=== PATIENT | female | born 1965 | race Caucasian/White ===

== ENCOUNTER 2017-09-15 16:07 | Emergency (ER) | payer BC ==
[~2017-09-15] VITALS: Ht 172.7 cm; Wt 51.8 kg
[~2017-09-15 16:07] MED LIST: ALBU18HF INH; BACL-19 PO; BUDE10.2 INH; BUTA1CAP58 PO; CALC-451 PO; CHOL4PAC2 PO; DULO30CA2 PO; HYDR-3307 PO; LEVO175T2 PO; MORP30TA81 PO; MULT-658 PO; ONDA4TAB10 PO; PREG150C PO; TIZA2TAB PO; TOPI100T24 PO; dicyclomine PO; vitamin c PO; vitamin d PO
[2017-09-15] MEDS ORDERED: SODIUM CHLORIDE FLUSH 10ML SYR IVF ONE (16:30)
[2017-09-15] MEDS ORDERED: ONDANSETRON 2MG/ML, 2ML IVPush ONE (16:30)
[2017-09-15] MEDS ORDERED: SODIUM CHLORIDE 0.9% 1,000ML IVBOLUS ONE (16:30)
[2017-09-15 16:48] LABS: HEMATOCRIT 42.1 % (34.6-47.8); HEMOGLOBIN 14.2 g/dL (11.7-16.4); WHITE BLOOD COUNT 6.8 x10^3/uL (3.4-10)
[2017-09-15 16:59] LABS: ASPARTATE AMINO TRANSFERASE 898 U/L (15-37); BLOOD UREA NITROGEN 14 mg/dL (7-18)
[2017-09-15] MEDS ORDERED: HYDROmorphone 1 MG/ML, 1ML IVPush PRN (17:00)
[2017-09-15] MEDS ORDERED: ONDANSETRON 2MG/ML, 2ML ONE (17:42)
[2017-09-15] MEDS ORDERED: HYDROmorphone 1 MG/ML, 1ML ONE (17:42)
[2017-09-15] MEDS ORDERED: OMNIPAQUE 350 MG/ML, 100ML BOTTLE ONE (18:12)
[2017-09-15 18:48] VITALS: BP 108/77
== END 2017-09-15 19:23 | disposition home or self-care (01) ==
LOC: ED 19:17
DX: K59.00 Constipation, unspecified (principal)
CPT/HCPCS: 36415; 74020; 74177; 80053; 81003; 83690; 85025; 96361; 96374; 96375; 99285; J1170; J2405; J7030; Q9967

== ENCOUNTER → 2018-01-22 | Outpatient (CLI) | payer MEDICARE, OTHER ==
[~2018-01-22] MED LIST changes: +FENTANYL PF 100 MCG/2ML ONE; +GADOBUTROL 7.5 MMOL/7.5 ML PFS ONE; +MIDAZOLAM 1 MG/ML, 2ML ONE
== END | disposition home or self-care (01) ==
LOC: RAD 12:18
PROVIDERS: ATTEND Physician Assistant
DX: M48.061 Spinal stenosis, lumbar region without neurogenic claudication (principal); M51.26 Other intervertebral disc displacement, lumbar region; M54.16 Radiculopathy, lumbar region; M96.1 Postlaminectomy syndrome, not elsewhere classified; Z98.890 Other specified postprocedural states
CPT/HCPCS: 72158; 99156; 99157; A9585; J2250; J3010

== ENCOUNTER → 2018-03-04 | Outpatient (CLI) | payer OTHER ==
[~2018-03-04] MED LIST changes: -FENTANYL PF 100 MCG/2ML ONE; -GADOBUTROL 7.5 MMOL/7.5 ML PFS ONE; -MIDAZOLAM 1 MG/ML, 2ML ONE
== END ==
LOC: CFH 09:24
PROVIDERS: ATTEND Nurse Practitioner Family
DX: M51.26 Other intervertebral disc displacement, lumbar region (principal); M43.26 Fusion of spine, lumbar region; M43.16 Spondylolisthesis, lumbar region
CPT/HCPCS: 72120; 72131

== ENCOUNTER → 2018-04-28 | Outpatient (CLI) | payer OTHER ==
[~2018-04-28] MED LIST changes: +COLE1TAB PO; +DICY10CA3 PO; +HYDR-879 PO; +IMATREX NAS; +PRAMIPREXOLE PO; +TIOT18CA INH
[2018-04-28 14:56] LABS: BASOPHILS # (AUTO) 0.04 x10^3/uL (0-0.1); BASOPHILS % (AUTO) 1 % (0-1); EOSINOPHILS # (AUTO) 0.25 x10^3/uL (0-0.4); EOSINOPHILS % (AUTO) 5 % (1-7); LYMPHOCYTES % (AUTO) 34 % (22-44); MD NO; MEAN CORPUSCULAR HEMOGLOBIN 31.7 pg (27.0-34.8); MEAN CORPUSCULAR HGB CONC 33.5 g/dL (32.4-35.8); MEAN CORPUSCULAR VOLUME 94.7 fL (80-100); MEAN PLATELET VOLUME 7.3 fL (7.4-10.4); MONOCYTES % (AUTO) 8 % (2-9); NEUTROPHILS # (AUTO) 2.82 x10^3/uL (1.8-6.8); NEUTROPHILS % (AUTO) 53 % (42-75); PLATELET COUNT 274 x10^3/uL (130-400); RED BLOOD COUNT 4.59 x10^6/uL (3.82-5.3); RED CELL DISTRIBUTION WIDTH 14.2 % (9.6-15.2)
[2018-04-28 14:58] LABS: MICROSCOPIC AUTO
[2018-04-28 15:02] LABS: CULTURE INDICATED? YES
[2018-04-28 15:06] LABS: INTERNATIONAL NORMALIZED RATIO 1.03 (0.93-1.1); PROTHROMBIN TIME 10.7 Seconds (9.6-11.5)
[2018-04-28 15:07] LABS: ANION GAP 4 mmol/L (5-15); CHLORIDE 114 mmol/L (98-107); CREATININE 0.81 mg/dL (0.55-1.02)
== END ==
LOC: STAR 13:34
PROVIDERS: ATTEND Neurological Surgery
DX: Z01.818 Encounter for other preprocedural examination (principal); M51.36 Other intervertebral disc degeneration, lumbar region
CPT/HCPCS: 36415; 71046; 80048; 81001; 85025; 85610; 85730; 87086; 93005

== ENCOUNTER 2018-05-11 10:30 | Inpatient (IN) | payer OTHER ==
[2018-04-28 14:05] VITALS: BP 121/81
[~2018-05-11] VITALS: Ht 172.7 cm; Wt 58.3 kg
[2018-05-26] MEDS ORDERED: EPINEPHRINE 1 MG/ML, 1ML ONE (09:26)
[2018-05-26] MEDS ORDERED: VANCOMYCIN 1,000 MG ONE (09:26)
[2018-05-26] MEDS ORDERED: THROMBIN 5,000 UNIT VIAL TP ONE (09:26)
[2018-05-26] MEDS ORDERED: BUPIVACAINE 0.25% ONE (09:26)
[2018-05-26] MEDS ORDERED: BACITRACIN 50,000 UNIT ONE (09:27)
[2018-05-26] MEDS ORDERED: LACTATED RINGERS 1,000 ML IV SCH (09:32)
[2018-05-26] MEDS ORDERED: GABAPENTIN 300 MG CAPSULE PO ONE (10:00)
[2018-05-26] MEDS ORDERED: ONDANSETRON ODT 8 MG PO ONE (10:00)
[2018-05-26] MEDS ORDERED: OXYcodone IR 5MG TABLET PO ONE (10:00)
[2018-05-26] MEDS ORDERED: ACETAMINOPHEN 500 MG TABLET PO ONE (10:00)
[2018-05-26] MEDS ORDERED: PROMETHAZINE 25 MG/ML, 1ML IV PRN (11:00)
[2018-05-26] MEDS ORDERED: MORPHINE SULFATE 4 MG/ML, 1ML IVPush PRN (11:00)
[2018-05-26] MEDS ORDERED: HALOPERIDOL 5 MG/ML IV PRN (11:00)
[2018-05-26] MEDS ORDERED: LABETALOL 5MG/ML, 20ML IV PRN (11:00)
[2018-05-26] MEDS ORDERED: ONDANSETRON ODT 8 MG PO PRN (11:00)
[2018-05-26] MEDS ORDERED: ALBUTEROL SULFATE 2.5 MG/3 ML NPPB PRN (11:00)
[2018-05-26] MEDS ORDERED: METOPROLOL 1 MG/ML, 5ML IV PRN (11:00)
[2018-05-26] MEDS ORDERED: OXYcodone 5 MG/5 ML ORAL.SOL UDC PO PRN (11:00)
[2018-05-26] MEDS ORDERED: hydrALAzine 20 MG/ML, 1ML IV PRN (11:00)
[2018-05-26] MEDS ORDERED: EPHEDRINE 50 MG/ML, 1ML IVPush PRN (11:00)
[2018-05-26] MEDS ORDERED: HEPARIN 1,000 UNITS/ML, 30ML ONE (11:37)
[2018-05-26] MEDS ORDERED: DEXAMETHASONE 4 MG/ML, 1ML ONE (12:24)
[2018-05-26] MEDS ORDERED: SUCCINYLCHOLINE 20 MG/ML, 10ML ONE (12:24)
[2018-05-26] MEDS ORDERED: MIDAZOLAM 1 MG/ML, 2ML ONE (12:28)
[2018-05-26] MEDS ORDERED: BUPIVACAINE/PF 0.25% INFIL ONE ×2 (13:19→13:20)
[2018-05-26] MEDS ORDERED: EPINEPHRINE 1 MG/ML, 1ML INFIL ONE (13:21)
[2018-05-26] MEDS ORDERED: VANCOMYCIN 1,000 MG IM ONE (13:21)
[2018-05-26] MEDS ORDERED: FENTANYL PF 250 MCG/5ML ONE (14:16)
[2018-05-26] MEDS ORDERED: PROPOFOL 50 ML ONE (14:17)
[2018-05-26] MEDS ORDERED: ROCURONIUM 10MG/ML,5ML ONE (14:48)
[2018-05-26] MEDS ORDERED: PROPOFOL 10 MG/ML, 20ML ONE (14:48)
[2018-05-26] MEDS ORDERED: CEFAZOLIN 1,000 MG ONE (14:48)
[2018-05-26] MEDS ORDERED: ONDANSETRON 2MG/ML, 2ML ONE (15:35)
[2018-05-26] MEDS ORDERED: FENTANYL PF 100 MCG/2ML ONE (15:57)
[2018-05-26] MEDS ORDERED: OXYcodone 5 MG/5 ML ORAL.SOL UDC ONE ×2 (15:57→17:08)
[2018-05-26] MEDS: FENTANYL PF 100 MCG/2ML IV PRN ×3 (15:59→16:10)
[2018-05-26] MEDS ORDERED: MEPERIDINE/PF 100 MG/ML IM PRN (16:00)
[2018-05-26] MEDS ORDERED: DIPHENHYDRAMINE 50 MG/ML, 1ML IVPush PRN (16:00)
[2018-05-26] MEDS: DICYCLOMINE 10 MG CAPSULE PO SCH ×2 (16:00→20:23)
[2018-05-26] MEDS ORDERED: PHARMACY MAY ADJ FOR RENAL FX MC PRN (16:00)
[2018-05-26] MEDS ORDERED: BISACODYL 10 MG SUPP PR PRN (16:00)
[2018-05-26] MEDS ORDERED: IMATREX NAS PRN ×2 (16:00→18:48)
[2018-05-26] MEDS ORDERED: MAGNESIUM HYDROXIDE 8%, 30ML UDC PO PRN (16:00)
[2018-05-26] MEDS ORDERED: HYDROmorphone 2 MG/ML, 1ML ONE (16:23)
[2018-05-26] MEDS ORDERED: METHOCARBAMOL 750 MG TABLET ONE (16:23)
[2018-05-26] MEDS: METHOCARBAMOL 750 MG TABLET PO SCH (16:25)
[2018-05-26] MEDS: HYDROmorphone 1 MG/ML, 1ML IVPush PRN ×3 (16:25→18:35)
[2018-05-26] MEDS: IPRATROPIUM 0.5 MG/2.5 ML INHA NPPB SCH (19:00)
[2018-05-26] MEDS ORDERED: ALBUTEROL SULFATE 2.5MG/0.5ML NPPB PRN (19:00)
[2018-05-26] MEDS: NS + 20MEQ KCL 1,000 ML IV SCH (19:29)
[2018-05-26 20:00] VITALS: BP 94/64
[2018-05-26] MEDS: SODIUM CHLORIDE FLUSH 10ML SYR IVF SCH (20:23)
[2018-05-26] MEDS: PREGABALIN 150 MG CAPSULE PO SCH (20:23)
[2018-05-26] MEDS: CEFAZOLIN PMX 1GM/50ML 50 ML IVPB SCH (20:23)
[2018-05-26] MEDS: TOPIRAMATE 100 MG TABLET PO SCH (20:24)
[2018-05-26] MEDS: COLESTIPOL 1 GM TABLET PO SCH (20:24)
[2018-05-26 23:50] VITALS: BP 96/62
[2018-05-27] MEDS: METHOCARBAMOL 750 MG TABLET PO SCH ×4 (00:09→23:54)
[2018-05-27] MEDS: IPRATROPIUM 0.5 MG/2.5 ML INHA NPPB SCH ×4 (01:00→16:05)
[2018-05-27 04:00] VITALS: BP 96/64
[2018-05-27] MEDS: CEFAZOLIN PMX 1GM/50ML 50 ML IVPB SCH (04:30)
[2018-05-27] MEDS: LEVOTHYROXINE 175 MCG TABLET PO SCH (04:55)
[2018-05-27 05:33] LABS: ANION GAP 2 mmol/L (5-15); CALCIUM 7.8 mg/dL (8.5-10.1); CHLORIDE 113 mmol/L (98-107); CREATININE 0.63 mg/dL (0.55-1.02)
[2018-05-27 05:35] LABS: BASOPHILS # (AUTO) 0.05 x10^3/uL (0-0.1); BASOPHILS % (AUTO) 1 % (0-1); EOSINOPHILS # (AUTO) 0.09 x10^3/uL (0-0.4); EOSINOPHILS % (AUTO) 1 % (1-7); LYMPHOCYTES # (AUTO) 1.21 x10^3/uL (1-3.4); LYMPHOCYTES % (AUTO) 16 % (22-44); MD NO; MEAN CORPUSCULAR HEMOGLOBIN 32.1 pg (27.0-34.8); MEAN CORPUSCULAR HGB CONC 34.2 g/dL (32.4-35.8); MEAN PLATELET VOLUME 7.4 fL (7.4-10.4); MONOCYTES # (AUTO) 0.62 x10^3/uL (0.2-0.8); MONOCYTES % (AUTO) 8 % (2-9); NEUTROPHILS # (AUTO) 5.88 x10^3/uL (1.8-6.8); NEUTROPHILS % (AUTO) 75 % (42-75); PLATELET COUNT 206 x10^3/uL (130-400); RED BLOOD COUNT 3.59 x10^6/uL (3.82-5.3); RED CELL DISTRIBUTION WIDTH 13.4 % (9.6-15.2)
[2018-05-27] MEDS ORDERED: [UNRECOGNIZED DRUG - OTHER] PO SCH (09:00)
[2018-05-27] MEDS: COLESTIPOL 1 GM TABLET PO SCH ×3 (09:00→21:36)
[2018-05-27] MEDS: FLUTICASONE/VILANTEROL 200-25MCG/INH INH SCH (09:00)
[2018-05-27] MEDS: SODIUM CHLORIDE FLUSH 10ML SYR IVF SCH ×2 (09:00→21:00)
[2018-05-27 09:15] VITALS: BP 99/60
[2018-05-27] MEDS: DULOXETINE 30 MG CAPSULE.DR PO SCH (10:34)
[2018-05-27] MEDS: TOPIRAMATE 100 MG TABLET PO SCH ×2 (10:34→21:35)
[2018-05-27] MEDS: SENNA/DOCUSATE TABLET PO SCH (10:34)
[2018-05-27] MEDS: NS + 20MEQ KCL 1,000 ML IV SCH (10:35)
[2018-05-27] MEDS: PREGABALIN 150 MG CAPSULE PO SCH ×2 (10:44→21:36)
[2018-05-27] MEDS: DICYCLOMINE 10 MG CAPSULE PO SCH ×3 (10:45→21:36)
[2018-05-27 13:28] VITALS: BP 95/61
[2018-05-27 13:57] VITALS: BP 104/62
[2018-05-27 17:26] VITALS: BP 114/71
[2018-05-27 19:44] VITALS: BP 105/67
[2018-05-27] MEDS: PRAMIPEXOLE 0.125MG TABLET PO SCH (21:00)
[2018-05-28 00:59] VITALS: BP 116/72
[2018-05-28] MEDS: IPRATROPIUM 0.5 MG/2.5 ML INHA NPPB SCH ×4 (01:00→19:00)
[2018-05-28] MEDS: NS + 20MEQ KCL 1,000 ML IV SCH ×3 (01:44→23:36)
[2018-05-28] MEDS: ONDANSETRON 2MG/ML, 2ML IVPush PRN ×2 (04:21→17:20)
[2018-05-28 05:22] LABS: BASOPHILS # (AUTO) 0.01 x10^3/uL (0-0.1); BASOPHILS % (AUTO) 0 % (0-1); EOSINOPHILS # (AUTO) 0.08 x10^3/uL (0-0.4); EOSINOPHILS % (AUTO) 1 % (1-7); LYMPHOCYTES # (AUTO) 0.55 x10^3/uL (1-3.4); LYMPHOCYTES % (AUTO) 6 % (22-44); MD NO; MEAN CORPUSCULAR HEMOGLOBIN 31.7 pg (27.0-34.8); MEAN CORPUSCULAR VOLUME 93.2 fL (80-100); MEAN PLATELET VOLUME 7.4 fL (7.4-10.4); MONOCYTES % (AUTO) 5 % (2-9); NEUTROPHILS # (AUTO) 8.13 x10^3/uL (1.8-6.8); NEUTROPHILS % (AUTO) 88 % (42-75); PLATELET COUNT 168 x10^3/uL (130-400); RED BLOOD COUNT 3.49 x10^6/uL (3.82-5.3); RED CELL DISTRIBUTION WIDTH 13.3 % (9.6-15.2)
[2018-05-28 05:46] LABS: CHLORIDE 108 mmol/L (98-107)
[2018-05-28 05:50] LABS: ANION GAP 5 mmol/L (5-15); CALCIUM 8.2 mg/dL (8.5-10.1); CREATININE 0.47 mg/dL (0.55-1.02)
[2018-05-28] MEDS: LEVOTHYROXINE 175 MCG TABLET PO SCH (06:00)
[2018-05-28 06:52] VITALS: BP 96/61
[2018-05-28] MEDS: FLUTICASONE/VILANTEROL 200-25MCG/INH INH SCH (09:00)
[2018-05-28] MEDS: SODIUM CHLORIDE FLUSH 10ML SYR IVF SCH ×2 (09:00→21:00)
[2018-05-28] MEDS: COLESTIPOL 1 GM TABLET PO SCH ×2 (09:00→22:28)
[2018-05-28] MEDS: METHOCARBAMOL 750 MG TABLET PO SCH ×3 (09:06→23:36)
[2018-05-28] MEDS: TOPIRAMATE 100 MG TABLET PO SCH ×2 (09:07→22:28)
[2018-05-28] MEDS: SENNA/DOCUSATE TABLET PO SCH (09:07)
[2018-05-28] MEDS: DICYCLOMINE 10 MG CAPSULE PO SCH ×3 (09:07→22:27)
[2018-05-28] MEDS: PREGABALIN 150 MG CAPSULE PO SCH ×2 (09:07→22:28)
[2018-05-28] MEDS: DULOXETINE 30 MG CAPSULE.DR PO SCH (09:07)
[2018-05-28 13:36] VITALS: BP 97/52
[2018-05-28] MEDS: PROMETHAZINE 25 MG/ML, 1ML IM PRN ×3 (17:56→22:26)
[2018-05-28 17:58] VITALS: BP 136/89
[2018-05-28 19:35] VITALS: BP 133/87
[2018-05-28] MEDS: PRAMIPEXOLE 0.125MG TABLET PO SCH (22:29)
[2018-05-29] MEDS: IPRATROPIUM 0.5 MG/2.5 ML INHA NPPB SCH ×3 (01:00→14:57)
[2018-05-29 01:09] VITALS: BP 122/77
[2018-05-29 04:51] LABS: BASOPHILS % (AUTO) 0 % (0-1); EOSINOPHILS # (AUTO) 0.01 x10^3/uL (0-0.4); EOSINOPHILS % (AUTO) 0 % (1-7); LYMPHOCYTES % (AUTO) 5 % (22-44); MD NO; MEAN CORPUSCULAR HEMOGLOBIN 31.4 pg (27.0-34.8); MEAN CORPUSCULAR HGB CONC 33.6 g/dL (32.4-35.8); MEAN CORPUSCULAR VOLUME 93.3 fL (80-100); MEAN PLATELET VOLUME 7.3 fL (7.4-10.4); MONOCYTES % (AUTO) 4 % (2-9); NEUTROPHILS # (AUTO) 8.47 x10^3/uL (1.8-6.8); NEUTROPHILS % (AUTO) 90 % (42-75); PLATELET COUNT 184 x10^3/uL (130-400); RED BLOOD COUNT 3.48 x10^6/uL (3.82-5.3); RED CELL DISTRIBUTION WIDTH 13.5 % (9.6-15.2)
[2018-05-29 04:55] LABS: ANION GAP 6 mmol/L (5-15); CALCIUM 8.1 mg/dL (8.5-10.1); CHLORIDE 108 mmol/L (98-107); CREATININE 0.41 mg/dL (0.55-1.02)
[2018-05-29] MEDS: LEVOTHYROXINE 175 MCG TABLET PO SCH (05:28)
[2018-05-29 07:27] VITALS: BP 116/76
[2018-05-29] MEDS: NS + 20MEQ KCL 1,000 ML IV SCH (08:00)
[2018-05-29] MEDS: FLUTICASONE/VILANTEROL 200-25MCG/INH INH SCH (09:00)
[2018-05-29] MEDS: COLESTIPOL 1 GM TABLET PO SCH (09:00)
[2018-05-29] MEDS: SODIUM CHLORIDE FLUSH 10ML SYR IVF SCH (09:00)
[2018-05-29] MEDS ORDERED: HYDR-879 PO (09:14)
[2018-05-29] MEDS ORDERED: METH750T2 PO (09:14)
[2018-05-29] MEDS: PREGABALIN 150 MG CAPSULE PO SCH (09:30)
[2018-05-29] MEDS: DICYCLOMINE 10 MG CAPSULE PO SCH (09:30)
[2018-05-29] MEDS: METHOCARBAMOL 750 MG TABLET PO SCH (09:30)
[2018-05-29] MEDS: HYDROcodone/APAP 10/325 MG TABLET PO PRN ×3 (09:30→14:00)
[2018-05-29] MEDS: SENNA/DOCUSATE TABLET PO SCH (09:30)
[2018-05-29] MEDS: TOPIRAMATE 100 MG TABLET PO SCH (09:30)
[2018-05-29] MEDS: DULOXETINE 30 MG CAPSULE.DR PO SCH (09:30)
[2018-05-29] MEDS: HYDROmorphone 1 MG/ML, 1ML IVPush PRN (10:58)
[2018-05-29 14:44] VITALS: BP 100/65
== END 2018-05-29 16:10 | disposition home or self-care (01) | DRG 460 ==
LOC: ORIP 05-26 08:55 → 4NOR 05-26 18:18
PROVIDERS: ADMIT Neurological Surgery; ATTEND Neurological Surgery
PROC: 0SG00K1 Fusion of Lumbar Vertebral Joint with Nonautologous Tissue Substitute, Posterior Approach, Posterior Column, Open Approach (ICD-10-PCS; 2018-05-26)
PROC: 0SP00AZ Removal of Interbody Fusion Device from Lumbar Vertebral Joint, Open Approach (ICD-10-PCS; 2018-05-26)
PROC: 0SG30K1 Fusion of Lumbosacral Joint with Nonautologous Tissue Substitute, Posterior Approach, Posterior Column, Open Approach (ICD-10-PCS; principal; 2018-05-26 12:00)
DX: M96.0 Pseudarthrosis after fusion or arthrodesis (principal); K50.90 Crohn's disease, unspecified, without complications; Y83.8 Other surgical procedures as the cause of abnormal reaction of the patient, or of later complication, without mention of misadventure at the time of the procedure; M48.061 Spinal stenosis, lumbar region without neurogenic claudication; M51.36 Other intervertebral disc degeneration, lumbar region; M47.816 Spondylosis without myelopathy or radiculopathy, lumbar region; G89.29 Other chronic pain; F17.210 Nicotine dependence, cigarettes, uncomplicated; Z88.8 Allergy status to other drugs, medicaments and biological substances; E03.9 Hypothyroidism, unspecified; G43.909 Migraine, unspecified, not intractable, without status migrainosus; G47.00 Insomnia, unspecified; J43.9 Emphysema, unspecified; K21.9 Gastro-esophageal reflux disease without esophagitis; M81.0 Age-related osteoporosis without current pathological fracture; M19.90 Unspecified osteoarthritis, unspecified site; M79.7 Fibromyalgia; Z87.01 Personal history of pneumonia (recurrent); Z82.49 Family history of ischemic heart disease and other diseases of the circulatory system; Z80.9 Family history of malignant neoplasm, unspecified
CPT/HCPCS: 36415; 71045; 71046; 72100; 80048; 85025; 94640; 95938; 95941; C1713; J0171; J0690; J1100; J1170; J1644; J2250; J2270; J2405; J2550; J2704; J3010; J3370; J3480; J3490; J7644; Q0162; C1762; J0330; J7120

== ENCOUNTER → 2018-07-05 | Outpatient (CLI) | payer OTHER ==
[~2018-07-05] MED LIST changes: +METH750T2 PO
== END | disposition home or self-care (01) ==
LOC: CFH 14:07
PROVIDERS: ATTEND Registered Nurse Registered Nurse First Assistant
DX: G95.20 Unspecified cord compression (principal); M96.0 Pseudarthrosis after fusion or arthrodesis
CPT/HCPCS: 72100